=== PATIENT | female | born 1990 ===

== ENCOUNTER 2017-07-25 11:44 | Emergency (ER) | payer SELFPAY ==
[2017-07-25] MEDS ORDERED: Ibuprofen TAB* 600 MG PO ONE (14:47)
--- NOTE | 2017-07-25 15:28 | RAD ---
HISTORY: Left shoulder pain COMPARISONS: None VIEWS: 4, Frontal internal rotation, external rotation, outlet, and axillary views of the left shoulder FINDINGS: BONE DENSITY: Normal. BONES: There is no displaced fracture. JOINTS: There is no arthropathy. ALIGNMENT: There is no dislocation. SOFT TISSUES: Unremarkable. OTHER FINDINGS: None. IMPRESSION: NO ACUTE OSSEOUS INJURY. IF SYMPTOMS PERSIST, RECOMMEND REPEAT IMAGING.
--- NOTE | 2017-07-25 15:31 | RAD ---
INDICATION: Pain on extension of the LEFT elbow post fall. COMPARISON: No relevant prior exams available on the [facility] for comparison. TECHNIQUE: AP, lateral, and oblique views LEFT elbow. REPORT: The elbow is held in approximate 120 degrees flexion limiting assessment. No compelling joint effusion, fracture, or articular malalignment. Unremarkable soft tissue contours. IMPRESSION: Limited exam due to restricted range of motion without evidence for joint effusion or fracture.
[2017-07-25 15:35] VITALS: BP 115/74
--- NOTE | 2017-07-25 16:34 | UC ---
Shoulder Pain HPI - HPI Summary HPI Summary: fell at work today landing on left shoulder and elbow-pain mostly in left elbow - History of Current Complaint Chief Complaint: UCUpperExtremity Stated Complaint: SHOULDER AND ELBOW PAIN Time Seen by Provider: 07/25/17 14:38 Hx Obtained From: Patient Hx Last Menstrual Period: 06/24/17 ?: No Onset/Duration: Sudden Onset, Lasting Hours, Still Present Timing: Constant Severity Initially: Moderate Severity Currently: Moderate Location Of Pain: Is Discrete @ - left elbow and shoulder Pain Intensity: 6 Pain Scale Used: 0-10 Numeric Character: Aching, Stiffness Aggravating Factor(s): Movement Alleviating Factor(s): Rest Associated Signs And Symptoms: Positive: Negative Related History: Occupational Injury, Dominant Hand Right - Allergies/Home Medications Allergies/Adverse Reactions: Allergies Allergy/AdvReac Type Severity Reaction Status Date / Time No Known Allergies Allergy Verified 07/25/17 12:46 Home Medications: Home Medications Guaifen/Phenyleph/Acetaminophn [Tylenol Cold Head Congest Cplt] 1 each PO DAILY PRN 07/25/17 [History Confirmed 07/25/17] PMH/Surg Hx/FS Hx/Imm Hx Previously Healthy: Yes - Surgical History Surgical History: Yes Surgery Procedure, Year, and Place: tonsillectomy - Family History Known Family History: Positive: None - Social History Occupation: Employed Full-time Lives: With Family Alcohol Use: Rare Substance Use Type: None Smoking Status (MU): Never Smoked Tobacco Review of Systems Constitutional: Negative Skin: Negative Eyes: Negative ENT: Negative Respiratory: Negative Cardiovascular: Negative Gastrointestinal: Negative Genitourinary: Negative Motor: Negative Neurovascular: Negative Musculoskeletal: Arthralgia - left elbow and shoulder Neurological: Negative Psychological: Negative Is Patient Immunocompromised?: No All Other Systems Reviewed And Are Negative: Yes Physical Exam Triage Information Reviewed: Yes Appearance: Well-Appearing, Well-Nourished, Pain Distress - mild Vital Signs: Initial Vital Signs Temp 98.6 F 07/25/17 12:41 Pulse 76 07/25/17 12:41 Resp 16 07/25/17 12:41 BP 129/74 07/25/17 12:41 Pulse Ox 99 07/25/17 12:41 Vital Signs Reviewed: Yes Eye Exam: Normal Eyes: Positive: Conjunctiva Clear ENT Exam: Normal ENT: Positive: Normal ENT inspection, Hearing grossly normal. Negative: Nasal congestion, Nasal drainage, Tonsillar swelling, Tonsillar exudate, Trismus, Hoarse voice, Dental tenderness, Sinus tenderness Dental Exam: Normal Neck exam: Normal Neck: Positive: Supple, Nontender Respiratory Exam: Normal Respiratory: Positive: Chest non-tender, Lungs clear, Normal breath sounds, No respiratory distress, No accessory muscle use Cardiovascular Exam: Normal Cardiovascular: Positive: RRR, No Murmur, Pulses Normal, Brisk Capillary Refill Musculoskeletal Exam: Normal Musculoskeletal: Positive: Strength Intact, No Edema, ROM Limited @ - full passive rom Neurological Exam: Normal Neurological: Positive: Alert, Muscle Tone Normal Psychological Exam: Normal Psychological: Positive: Normal Response To Family Skin Exam: Normal Diagnostics - Radiology No standard instances Xray Interpretation: No Acute Changes Radiology Interpretation Completed By: ED Physician, Radiologist Re-Evaluation - Re-Evaluation First Eval Change: Improved - edward wrap and sling for 1 - 2 days Shoulder Course/Dx - Course Assessment/Plan: rice, rest ibuprofen follow with ortho is not resolved on saturday - Differential Dx/Diagnosis Provider Diagnoses: Left arm contusion Discharge - Discharge Plan Condition: Stable Disposition: HOME Patient Education Materials: Ibuprofen (By mouth), Contusion in Adults (ED), R.I.C.E. Treatment (ED) Forms: *Work Release Referrals: Tate Garvin MD [Medical Doctor] - 4 Days
== END 2017-07-25 15:57 | disposition home or self-care (01) ==
LOC: UCEAST 11:44
DX: S40.022A Contusion of left upper arm, initial encounter (principal); W19.XXXA Unspecified fall, initial encounter; Y93.9 Activity, unspecified; Y92.9 Unspecified place or not applicable; Y99.0 Civilian activity done for income or pay
CPT/HCPCS: 99203; A9270-GY; G0463